=== PATIENT | male | born 1970 | race Two or more races ===

== ENCOUNTER 2022-07-12 09:15 | Inpatient (IN) | payer OTHER ==
[~2022-07-12] VITALS: Ht 177.8 cm; Wt 62.6 kg
== END 2022-07-21 14:38 | disposition home or self-care (01) | DRG 330 ==
LOC: O/R 07-18 05:25 → SURH 07-18 09:15
PROVIDERS: ADMIT Colon & Rectal Surgery; ATTEND Colon & Rectal Surgery
PROC: 0DBP4ZZ Excision of Rectum, Percutaneous Endoscopic Approach (ICD-10-PCS; 2022-07-18)
PROC: 0WUF47Z Supplement Abdominal Wall with Autologous Tissue Substitute, Percutaneous Endoscopic Approach (ICD-10-PCS; 2022-07-18)
PROC: 0TQB4ZZ Repair Bladder, Percutaneous Endoscopic Approach (ICD-10-PCS; 2022-07-18)
PROC: 0DJD8ZZ Inspection of Lower Intestinal Tract, Via Natural or Artificial Opening Endoscopic (ICD-10-PCS; 2022-07-18)
PROC: 0DTN4ZZ Resection of Sigmoid Colon, Percutaneous Endoscopic Approach (ICD-10-PCS; principal; 2022-07-18 12:00)
DX: K57.20 Diverticulitis of large intestine with perforation and abscess without bleeding (principal); N32.1 Vesicointestinal fistula; N99.72 Accidental puncture and laceration of a genitourinary system organ or structure during other procedure; Z20.822 Contact with and (suspected) exposure to COVID-19